=== PATIENT | male | born 1955 | race Caucasian/White ===

== ENCOUNTER 2024-08-20 13:32 | Outpatient (RCR) | payer MEDICARE, SELFPAY | END 2024-08-20 23:59 | disposition home or self-care (01) | LOC: ROT 13:32 | PROVIDERS: ATTENDING PHYSICIAN Orthopaedic Surgery Hand Surgery; FAMILY PHYSICIAN Internal Medicine | DX: Z47.89 Encounter for other orthopedic aftercare (principal); Z73.6 Limitation of activities due to disability | CPT/HCPCS: 97166; 97535 ==

== ENCOUNTER → 2024-10-06 13:49 | Outpatient (REF) | payer MEDICARE, SELFPAY | LOC: EMG 13:49 | PROVIDERS: ATTENDING PHYSICIAN Orthopaedic Surgery Hand Surgery; FAMILY PHYSICIAN Internal Medicine | DX: R20.0 Anesthesia of skin (principal); G56.03 Carpal tunnel syndrome, bilateral upper limbs | CPT/HCPCS: 95886; 95911 ==

== ENCOUNTER → 2024-11-15 13:57 | Outpatient (REF) | payer MEDICARE, SELFPAY | LOC: EMG 13:57 | PROVIDERS: ATTENDING PHYSICIAN Anesthesiology Pain Medicine; FAMILY PHYSICIAN Internal Medicine | DX: M54.31 Sciatica, right side (principal); R20.0 Anesthesia of skin | CPT/HCPCS: 95886; 95911 ==

== ENCOUNTER → 2024-11-15 15:30 | Outpatient (REF) | payer MEDICARE, SELFPAY ==
[2024-11-15 16:21] LABS: % Basophils 0.5 % (0-2); % Eosinophils 3.2 % (0-6); % Immature Granulocytes 0.2 % (0-0.5); % Lymphocytes 24.2 % (20.5-51.1); % Monocytes 8.9 % (1.7-9.3); Absolute Eosinophils 0.2 10^3/uL (0-0.7); Absolute Lymphocytes 1.5 10^3/uL (1.2-3.4); Absolute Monocytes 0.6 10^3/uL (0.1-0.6); Hematocrit 40.9 % (39.0-52.0); Hemoglobin 14.2 g/dL (13.0-18.0); Mean Corp Hgb Conc. 34.7 g/dL (33.0-37.0); Mean Corpuscular Hgb 30.1 pg (27.0-31.0); Mean Corpuscular Volume 86.8 fL (80.0-94.0); Mean Platelet Volume 10.1 fL (7.4-10.4); Nucleated Red Blood Cells % 0 % (-); Platelet Count 190 10^3/uL (130-400); Red Blood Cell Count 4.71 10^6/uL (4.70-6.10); Red Cell Dist. Width 12.7 % (11.5-14.5); White Blood Cell Count 6.3 10^3/uL (4.8-10.8)
[2024-11-15 16:35] LABS: Blood Urea Nitrogen 33 mg/dl (9-20); Calcium 9.4 mg/dl (8.4-10.2); Carbon Dioxide 33 mmol/L (22-30); Chloride 101 mmol/L (98-107); Glucose 93 mg/dl (70-99); Potassium 4.2 mmol/L (3.5-5.1); Sodium 142 mmol/L (135-145); eGFR 58.73
== END ==
LOC: RCS 15:30
PROVIDERS: ATTENDING PHYSICIAN Orthopaedic Surgery Hand Surgery; FAMILY PHYSICIAN Internal Medicine
DX: Z01.818 Encounter for other preprocedural examination (principal)
CPT/HCPCS: 36415; 80048; 85025; 93005

== ENCOUNTER 2024-12-26 12:28 | Emergency (ER) | payer MEDICARE, SELFPAY ==
[2024-12-26 12:34] VITALS: BP 128/90
[2024-12-26] MEDS: DELTASONE 40 MG PO (15:58)
[2024-12-26 16:00] LABS: Urine Albumin Negative (Neg - Trace); Urine Bilirubin Negative (Negative); Urine Character Clear (Clear); Urine Color Yellow; Urine Glucose Negative (Negative); Urine Ketone Negative (Negative); Urine Leukocyte Negative (Negative); Urine Nitrite Negative (Negative); Urine Occult Blood Negative (Negative); Urine Urobilinogen Negative (Neg - 1+)
--- NOTE | 2024-12-26 16:51 | ED.GENMED ---
History of Present Illness
General
Chief Complaint: Back Pain
Source: patient
Exam Limitations: none
Time Seen by Provider: 12/26/24 15:06
Nursing documentation reviewed up to this point in time: agreed with
History of Present Illness
History of Present Illness:
The patient is a pleasant 69-year-old man who has had a history of chronic right leg pain. Patient reports that despite getting multiple steroid injections by pain management, he is still struggling with this right leg pain. Patient reports that
he had a steroid injection placed in his sacroiliac joint as well as in his L-spine. Unfortunately, neither injection helped with his pain. [place] sudden onset of right buttock
pain with worsening pain down his right leg to the level of his right ankle. He denies specific trauma. Patient denies weakness and numbness of his legs. Additionally, patient reports that he is unable to fully empty his bladder. When he read on
the Internet about back pain in the context of urinary retention, it concerned him that he had a major spinal cord problem. However, patient is able to walk. He reports he is able to mostly empty his bladder. He denies any urinary incontinence.
He denies bowel incontinence. He denies any decrease sensation in his perineal area. Patient had an MRI done last June which shows mild spondylolisthesis as well as disc herniations. Patient denies burning with urination. He denies abdominal
pain. He denies back pain. Patient reports that his pain starts at the level of his right buttock area.
Past History
Past History
ED Past Medical History: HTN, Hypercholesterolemia and Other (Chronic right leg pain for which she is followed by pain management)
ED Past Surgical History: Orthopedic and Other
Social History
Tobacco: Non-smoker
Alcohol: Other
Drug: None
Personal:
Living: with family
Employment: Employed
Family History
Family History: Other
Review of Systems
Review of Systems
Allergies reviewed?: Yes
All Other Systems: ROS reviewed and negative except as documented in HPI and ROS
Constitutional: Reports no symptoms
EENT: Reports no symptoms
Respiratory: Reports no symptoms
Cardiac: Reports no symptoms
ABD/GI: Reports no symptoms
: Reports difficulty voiding
Musculoskeletal: Reports other (Pain right buttock and right leg)
Skin: Reports no symptoms
Neurological: Reports no symptoms
Endocrine: Reports no symptoms
Hematologic/Lymphatic: Reports no symptoms
Psychiatric: Reports no symptoms
Phy Exam
Physical Exam
Physical Exam:
Physical Exam
General: no apparent distress, not acutely ill, well, comfortable
Neck: supple.
Heart: s1/s2 regular rate and rhythm, no murmur. equal radial pulses. Strong femoral pulses bilaterally
Lungs: no acute respiratory distress. clear bilaterally
Abdomen: Soft, nontender throughout. No CVA tenderness. No cervical, thoracic or lumbar back pain on palpation
Neuro: alert and oriented. no focal neurological deficits. No saddle anesthesia. 5 out of 5 strength in lower extremities. Strong and equal sensation of bilateral lower extremities.
Skin: no rash. No swelling or erythema of right lower extremity
Psychiatric: well kept. interactive and cooperative
Extremities: no edema. no calf tenderness. negative homans. good distal pulses of feet bilaterally
Course
Orders/Labs/Results
Orders:
Orders
12/26/24 15:42
Bladder Scan- Treatment ONCE
12/26/24 15:43
Prednisone [Deltasone] 40 mg PO NOW STA
12/26/24 15:45
Urinalysis Reflex To Culture Urgent
Date Specimen was Collected: 12/26/24
Time Specimen was Collected: 15:42
Vital Signs
Initial and Last Documented VS:
Initial Vital Signs
Temp Pulse Resp BP Pulse Ox
98.6 F 66 16 128/90 100
12/26/24 12:34 12/26/24 12:34 12/26/24 12:34 12/26/24 12:34 12/26/24 12:34
Last Documented Vital Signs
Temp Pulse Resp BP Pulse Ox
98.6 F 66 16 128/90 100
12/26/24 12:34 12/26/24 12:34 12/26/24 12:34 12/26/24 12:34 12/26/24 12:34
MDM/Problems Addressed
Differential Diagnosis Includes:
Acute sciatica on right side. UTI, cauda equina
MDM/Problems Addressed:
Patient presents with acute on chronic right leg pain and acute urinary retention
*Pulse Oximetry
Patient hypoxic: no
*EKG
Interpreted by ED Provider?: NA
*Intervention Manager Interpretation
Rate: Intervention Manager- N/A
*Critical Care Note
Total Time (30-74mins, 75-104mins- exclusive of procedures): Not Applicable
Data Reviewed
Review of Other/Old Records Reveals: Radiology Studies (Patient showed me MRI report from 06/2024)
Source: patient
Further Testing Considered But Not Given:
I consider doing an x-ray of patient's lumbar sacral spine, however, he had no bony tenderness of spine on evaluation. He denies trauma. He has excellent strength and sensation of lower extremities.
Patient Management
Social determinants of health affecting care: Living situation and Strong social support
Escalation/DeEscalation of care consider admission/obs:
Patient appears very well and comfortable. He is able to walk with very little difficulty. He has excellent sensation in his perineal area with excellent strength in his lower extremities. There is no sign of cauda equina. Patient's post void
residual was 100 cc of urine. Patient states he has his own urologist who he will call for follow-up. Patient also given phone number for Dr. Maxwell Shahid to further discuss his right buttock and right leg pain.
ED Attending Note
-
Portions of this chart may have been created with voice recognition software.� Occasional wrong word or��sound alike� substitutions may have occurred due to the inherent limitations of voice recognition software.
Discharge Plan
Departure
Patient Disposition: Home (Routine Discharge)
Date of Disposition: 12/26/24
Time of Disposition: 16:36
Patient with high blood pressure during this ER visit?: Yes
Condition: Good
Covid-19: Not Applicable
Discharge Problem:
Acute right-sided low back pain with sciatica, Acute urinary retention
Instructions: Sciatica (DC), Urinary retention - Discharge instructions, BLOOD PRESSURE
Prescriptions:
New
prednisone 10 mg tablet
10 mg PO DIRECTED 7 Days Qty: 16 0RF
Rx Instructions:
Take 40 mg in the morning on day 1
Take 30 mg in the morning on day 2 and day 3
Take 20 mg in the morning on day 4 and day 5
Take 10 mg in the morning on day 6 and day 7
Referrals:
Katie Redding MD [Family Provider] -
Activity Restrictions/Additional Instructions:
It is important to follow-up with urologist soon as possible to discuss your mild urinary retention. Return with any fevers or chills.
Interventions
Interventions:
*Risk Screen - Suicide Last Done: 12/26/24 12:34
*General Assessment Last Done: 12/26/24 12:34
*ED COVID-19 Vaccine History Last Done: 12/26/24 12:34
ED-Musculoskeletal Assessment Last Done: 12/26/24 16:49
Discharge Date and Time
Print Language: SINHALA
== END 2024-12-26 17:12 | disposition home or self-care (01) ==
LOC: EMR 12:28
PROVIDERS: EMERGENCY PHYSICIAN Emergency Medicine; FAMILY PHYSICIAN Internal Medicine
DX: M54.41 Lumbago with sciatica, right side (principal); R33.9 Retention of urine, unspecified; M25.551 Pain in right hip; M79.604 Pain in right leg; M25.571 Pain in right ankle and joints of right foot; E78.00 Pure hypercholesterolemia, unspecified; I10 Essential (primary) hypertension; G89.29 Other chronic pain; M43.10 Spondylolisthesis, site unspecified; M51.372 Other intervertebral disc degeneration, lumbosacral region with discogenic back pain and lower extremity pain; Z87.442 Personal history of urinary calculi; Z88.1 Allergy status to other antibiotic agents
CPT/HCPCS: 99283; 51798; 81003

== ENCOUNTER → 2025-08-15 10:49 | Outpatient (REF) | payer MEDICARE, SELFPAY | LOC: EMG 10:49 | PROVIDERS: ATTENDING PHYSICIAN Pain Medicine Interventional Pain Medicine; FAMILY PHYSICIAN Internal Medicine | DX: G62.9 Polyneuropathy, unspecified (principal); R20.0 Anesthesia of skin | CPT/HCPCS: 95886; 95911 ==

== ENCOUNTER → 2025-08-20 09:38 | Outpatient (REF) | payer MEDICARE, SELFPAY | LOC: PAVMRI 09:38 | PROVIDERS: ATTENDING PHYSICIAN Pain Medicine Interventional Pain Medicine; FAMILY PHYSICIAN Internal Medicine | DX: M54.12 Radiculopathy, cervical region (principal) | CPT/HCPCS: 72141 ==